=== PATIENT | female | born 1960 | race Caucasian/White ===

== ENCOUNTER 2025-01-19 09:35 | Day surgery (SDC) | payer BC, SELFPAY ==
--- OUTSIDE RECORDS SUMMARY | 2024-12-12 11:44 | XMS_ITS ---
Author Organization [facility] Address [address] [place] [address] Care Team Providers Care Staking Technician Name Role Phone Valentinabonnie Nicky Primary Care Provider UnavailYovani García Jr Unavailable Allergies Allergen (clinical drug ingredient) Drug/Non Drug Allergy documented on EMR Reaction Allergy Type Onset Date Status amoxicillin Amoxicillin Unknown Drug Allergy Act ana tomato allergenic extract Tomato (Diagnostic) Unknown Drug Allergy Active sertraline Zoloft Unknown Drug Allergy Active REASON FOR VISIT Patient presents today for a colonoscopy Medications Medication SIG (Take, Route, Frequency, Duration) Notes Start Date End Date Status Eliquis 5 MG as directed Orally Active Doxepin HCl 10 MG 1 capsule at bedtime Orally Once a day Active amLODIPine Besylate 2.5 MG 1 tablet Oral ly Once a day Active ProAir HFA 108 (90 Base) MCG/ACT INHALE 2 PUFFS 4 TIMES A DAY Inhalation as needed Unknown Atorvastatin Calcium 10 MG 1 tablet Oral ly Once a day Active Immunizations Vaccine Route Administration Date Status Comme nts Influenza Unknown 12/11/2024 Refused Problems Problem Type SNOMED Code ICD Code Onset Dates Problem Status W/U Status Risk Notes Problem Screening for malignant neoplasm of colon (409818296) Encounter for screening for malignant neoplasm of colon (Z12.11) Active confirmed Problem Constipation (61336898) Constipation (K59.00) Active confirmed Problem Anticoagulant long-term use (Z79.01) Active confirmed Vital Signs Temperature 98.6 degrees Fahrenheit 12/12/19 25 Blood pressure systolic 001 mm Hg 12/12/19 25 Blood pressure diastolic 01 mm Hg 025 Height 62.5 in 12/11/2024 Weight 196.6 lbs 12/11/2024 BMI 35.38 kg/m2 12/11/2024 Encounters Encounter Location Date Provider Diagnosis [facility] [address] [place] [address] 12/11/2024 Yovani Elise Jr Encounter for screening for malignant neoplasm of colon Z12.11 ; Constipation K59.00 and Anticoagulant long-term use Z79.01 Assessments Encounter Date Diagnosis (ICD Code) Assessment Notes Treatment Notes Treatment Clinical Notes Section Notes 12/11/2024 Encounter for screening for malignant neoplasm of colon (ICD-10 - Z12.11) We discussed constipation today. We discussed the reasons why this may have occurred since her surgery. This could be due to medications, diet, or lack of fiber. We discussed the high-fiber diet. We discussed the use of Metamucil and MiraLAX for her symptoms. She is due for colorectal cancer screening. This will be arranged. She understands risks and benefits and agrees to proceed. She is advised to stop Eliquis 3 days before the procedure. 12/11/2024 Constipation (ICD-10 - K59.00) We discussed constipation today. We discussed the reasons why this may have occurred since her surgery. This could be due to medications, diet, or lack of fiber. We discussed the high-fiber diet. We discussed the use of Metamucil and MiraLAX for her symptoms. She is due for colorectal cancer screening. This will be arranged. She understands risks and benefits and agrees to proceed. She is advised to stop Eliquis 3 days before the procedure. 12/11/2024 Anticoagulant long-term use (ICD-10 - Z79.01) We discussed constipation today. We discussed the reasons why this may have occurred since her surgery. This could be due to medications, diet, or lack of fiber. We discussed the high-fiber diet. We discussed the use of Metamucil and MiraLAX for her symptoms. She is due for colorectal cancer screening. This will be arranged. She understands risks and benefits and agrees to proceed. She is advised to stop Eliquis 3 days before the procedure. Plan Of Treatment Future Test Test Name Order Date COLONOSCOPY 12/11/2024 Next Appt Details Follow Up: 1 Year, Reason: Provider Name:Yovani altamirano Jr, 01/02/2025 12:30:00 PM, [address] [place], [place], [phone], Progress Notes * DELL MARTI LDOB: [birth year] (64 yo F)Acc No.[id number]:12/11/2024 Progress Notes Patient:DELL PEREIRA Provider:?Yovani Elise MD :1960???Age:64 Y???Sex:Female D ate:12/11/2024 Address:[address] [place] [id number] Pcp:Nicky Rausch Subjective: * Chief Complaints: * ???1. Patient presents today for a colonoscopy. * HPI: ???New symptom(s):? The patient is a pleasant 64-year-old woman seen today in consultation. 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 Since that time she reports a change in her bowel movements. She feels constipation and bloating. She has had no rectal bleeding. She has not changed her diet and has not had any new medications. She did have an IVC filter placed for a DVT. This is scheduled to be removed shortly. She is on blood thinners with Eliquis. She is unsure how long she will be needing to take this. She tries to follow a high-fiber diet. * ROS:?General/Constitutional:?Change in appetite?denies.?Fatigue?denies.?ENT:?Patient denies?difficulty swallowing.?Respiratory:?Patient denies?shortness of breath.?Cardiovascular:?Patient denies?chest pain.?Gastrointestinal:?Comments?See HPI for details.?Genitourinary:?Difficulty urinating?denies.?Incontinence?denies.?Musculoskeletal:?Patient denies?muscle aches.?Skin:?Patient denies?pruritis.?Neurologic:?Patient denies?low back pain.?Psychiatric:?Patient denies?mental or physical abuse.? 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 * Surgical History:?tonsillect caio , appendectomy , knee surgery , tubal ligation , hemorrhoidectomy , dental extractions , nose surgery - Dr. Simon 2016, nephrectomy , total knee replacement right . * Hospitalization/Major Diagno stic Procedure:?septic from UTI, found kidney tumor, hospital in for a week. 03/07/24, 05/28. * Family History:?Father: dece ased, diagnosed with HTN (hypertension).?Mother: , precancerous polyp, diagnosed with Inflammatory bowel disease, Colon polyps, Diabetes.?Maternal Grand Father: , diagnosed with Colon cancer.? No family history of liver cancer or colon cancer.? Grandfather had pancreatic cancer. * Social History:?Tobacco Use:?Tobacco Use/Smoking?Are you a: nonsmoker.?Drugs/Alcohol:?Alcohol Screen?Points: 0, Interpretation: Negative.?Miscellaneous:?Marital status: . Occupation: works full-time. * Medications:?Taking Atorvast atin Calcium 10 MG Tablet 1 tablet Orally Once a day , Taking Doxepin HCl 10 MG Capsule 1 capsule at bedtime Orally Once a day , Taking amLODIPine Besylate 2.5 MG Tablet 1 tablet Orally Once a day , Taking Eliquis 5 MG Tablet as directed Orally , Discontinued Albuterol Sulfate (2.5 MG/3ML) 0.083% Nebulization Solution 3 ml Inhalation Three times a day , Discontinued Motrin 40 MG/ML Suspension Orally prn , Discontinued Zoloft 50 MG Tablet Orally Once a day , Discontinued Benadryl 25 MG Capsule Orally once a day , Discontinued OsmoPrep 1.102-0.398 GM Tablet 32 tablets Orally over two days as directed , Discontinued Colyte w Flavor Packs 240 GM Solution Reconstituted as directed Orally as directed , Unknown ProAir HFA 108 (90 Base) MCG/ACT Aerosol Solution INHALE 2 PUFFS 4 TIMES A DAY Inhalation as needed , Medication List reviewed and reconciled with the patient * Allergies:?Amoxicillin, Zolo ft, Tomato (Diagnostic). Objective: * Vitals:?Wt: 196.6 lbs, Ht: 6 2.5 in, BMI: 35.38 Index, BP: 001/01 mm Hg, Temp: 98.6, Wt-k.18. * Examination: ???General Examination: ?GENERAL APPEARANCE:?in no acute distress.?HEAD:?normocephalic.?EYES:?sclera non-icteric.?ORAL CAVITY:?mucosa moist.?NECK/THYROID:?no lymphadenopathy.?SKIN:?anicteric.?HEART:?S1, S2 normal, no murmurs.?LUNGS:?clear to auscultation bilaterally.?CHEST:?normal shape and expansion.?ABDOMEN:?soft, nontender, nondistended, bowel sounds present, no organomegaly .?EXTREMITIES:?no clubbing, cyanosis, or edema.?PSYCH:?cognitive function intact.? Assessment: * Assessment: 1.?Constipation - K59.00 (Pr imary)???2.?Encounter for screening for malignant neoplasm of colon - Z12.11???3.?Anticoagulant long-term use - Z79.01??? We discussed constipation to day. We discussed the reasons why this may have occurred since her surgery. This could be due to medications, diet, or lack of fiber. We discussed the high-fiber diet. We discussed the use of Metamucil and MiraLAX for her symptoms. She is due for colorectal cancer screening. This will be arranged. She understands risks and benefits and agrees to proceed. She is advised to stop Eliquis 3 days before the procedure. Plan: * Treatment: * Immunizations:? Influenza (Not administered - Refused: Patient decision) * Procedure Codes:?3017F COLOR ECTAL CA SCREEN DOC REV, 1036F TOBACCO NON-USER, G9744 PATIENT NOT ELIG D/T ACTIVE DX HTN * Preventive Medicine:? ??Counseling:?Care goal follow-up plan:?Above Normal BMI Follow-up?Dietary management education, guidance, and counseling,?BMI management provided?Yes.? ??Urinary Incontinence:?Urinary Incontinence?Assessment:?Absent,?Plan of care documented:?No, reason not specified.? ??Screenings:?Fall Risk Screening?Fall Risk Assessment:?No falls in the past year,?Screening:?No falls in the past year,?Assessment:?Not performed, no reason specified,?Plan of Care:?Not documented, no reason specified.? * Follow Up:?1 Year * * Sign off status: Completed true * Provider:?Yovani Elise MD Date:?0 12/11/2024 Generated for Katey khan/Marie/eTransmitting on:?12/12/2024 11:43 AM EDT History and Physical Notes * HPI (History of Present Illness) Category Sub-Category Detail Notes Category Not es New symptom(s) The patient i s a pleasant 64-year-old woman seen today in consultation. 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 Since that time she reports a change in her bowel movements. She feels constipation and bloating. She has had no rectal bleeding. She has not changed her diet and has not had any new medications. She did have an IVC filter placed for a DVT. This is scheduled to be removed shortly. She is on blood thinners with Eliquis. She is unsure how long she will be needing to take this. She tries to follow a high-fiber diet. Examination Category Sub-Category Detail Notes Category Not es General Examination GENERAL APPEARANCE: in no acute di stress HEAD: normocephalic EYES: sclera non-icteric NECK/THYROID: no lymphadenopathy HEART: S1, S2 normal, no mu rmurs CHEST: normal shape and exp ansion LUNGS: clear to auscultatio n bilaterally ABDOMEN: soft, nontender, non distended, bowel sounds present, no organomegaly SKIN: anicteric EXTREMITIES: no clubbing, cyanosi s, or edema PSYCH: cognitive function i ntact ORAL CAVITY: mucosa moist
[2024-12-29 15:09] VITALS: BMI 35.4
--- NOTE | 2025-01-01 09:18 | HO.ANESPROP2 ---
Documented by User: Flor Hurd NP 01/11/25 13:12 HPI - Anesthesia Eval Consult details Narrative: 64yo F for Colonoscopy, 01/19/25 Eliquis for DVT, IVC filter in situ PMFSH Past Medical History Medical History (Updated 01/19/25 @ 11:07 by Meka Lynch, RN) Snores Hemochromatosis DVT (deep venous thrombosis) Clear cell adenocarcinoma of kidney HTN (hypertension) Asthma Depression Hyperlipidemia Surgical History Surgical History (Updated 01/19/25 @ 11:05 by Meka Lynch RN) History of nephrectomy, left History of inferior vena caval filter placement History of total right knee replacement Hx of nasal septoplasty Hx of hemorrhoidectomy Hx of tubal ligation Hx of knee surgery Hx of appendectomy Hx of tonsillectomy H/O colonoscopy Social History Social History (System 01/15/21 @ 09:48 by Pearl Ibrahim) Patient Tobacco Use Status: Former Tobacco user Use of substances other than those prescribed or required for medical reasons: No Are you DNR?: No Advance Directives: No Advance Directives Information Provided: Yes Meds Allergies Allergy/AdvReac Type Severity Reaction Status Date / Time ampicillin (AMPICILLIN) Allergy Severe SEVERE RASH Verified 01/19/25 11:07 iron (IRON) Allergy Severe HEMOCHROMOT Verified 01/19/25 11:07 OSIS tomato (TOMATO) Allergy Severe ANAPHYLAXIS Verified 01/19/25 11:07 amoxicillin Allergy Intermediate Rash Verified 01/19/25 11:07 Bcpvsrd-RMK-LaW Reductase Allergy Intermediate N/V Verified 01/19/25 11:07 Inhibitor ([id number] REDUCTASE INHIBITOR) Home Medications ?Medication ?Instructions ?Recorded ?Confirmed ?Last Taken ?Type amlodipine 2.5 mg tablet 2.5 mg PO BEDTIME 12/29/24 01/19/25 Unknown History apixaban 5 mg tablet (Eliquis) 5 mg PO BID 12/29/24 01/19/25 01/15/25 History rosuvastatin 10 mg tablet 10 mg PO BEDTIME 12/29/24 01/19/25 Unknown History doxepin 25 mg capsule 25 mg PO BEDTIME 01/19/25 01/19/25 Unknown History Exam Height,Weight and Vital Signs: Height 5 ft 2.5 in Weight 89.176 kg Assessment and Plan Assessment Anesthesia Assessment: Chart Reviewed Documented by User: Elza Lopez MD 01/19/25 12:15 PMFSH Past Medical History Medical History (Updated 01/19/25 @ 11:07 by Meka Lynch, RN) Snores Hemochromatosis DVT (deep venous thrombosis) Clear cell adenocarcinoma of kidney HTN (hypertension) Asthma Depression Hyperlipidemia Family History Family history of problems with anesthesia: No Surgical History Surgical History (Updated 01/19/25 @ 11:05 by Meka Lynch, RN) History of nephrectomy, left History of inferior vena caval filter placement History of total right knee replacement Hx of nasal septoplasty Hx of hemorrhoidectomy Hx of tubal ligation Hx of knee surgery Hx of appendectomy Hx of tonsillectomy H/O colonoscopy History of Problems with Anesthesia: No Social History Social History (System 01/15/21 @ 09:48 by Pearl Ibrahim) Patient Tobacco Use Status: Former Tobacco user Use of substances other than those prescribed or required for medical reasons: No Are you DNR?: No Advance Directives: No Advance Directives Information Provided: Yes Meds Allergies Allergy/AdvReac Type Severity Reaction Status Date / Time ampicillin (AMPICILLIN) Allergy Severe SEVERE RASH Verified 01/19/25 11:07 iron (IRON) Allergy Severe HEMOCHROMOT Verified 01/19/25 11:07 OSIS tomato (TOMATO) Allergy Severe ANAPHYLAXIS Verified 01/19/25 11:07 amoxicillin Allergy Intermediate Rash Verified 01/19/25 11:07 Tygiiak-WFZ-VfA Reductase Allergy Intermediate N/V Verified 01/19/25 11:07 Inhibitor ([id number] REDUCTASE INHIBITOR) Home Medications ?Medication ?Instructions ?Recorded ?Confirmed ?Last Taken ?Type amlodipine 2.5 mg tablet 2.5 mg PO BEDTIME 12/29/24 01/19/25 Unknown History apixaban 5 mg tablet (Eliquis) 5 mg PO BID 12/29/24 01/19/25 01/15/25 History rosuvastatin 10 mg tablet 10 mg PO BEDTIME 12/29/24 01/19/25 Unknown History doxepin 25 mg capsule 25 mg PO BEDTIME 01/19/25 01/19/25 Unknown History Exam Airway Mallampati Class: III TM Dist: >3cm Neck ROM: Full Assessment and Plan Assessment Anesthesia Assessment: Anesthesia Plan Discussed Final Anesthetic Review Family History of Problems with Anesthesia: No History of Problems with Anesthesia: No NPO: Yes ASA Class: III Final Preanesthetic Review: No Changes in Pt Med Stat, Meds/Allgs Chart Reviewed, Consent Obtained/Reviewed and Anes Risks/Benef Reviewed Patient Risk: Intermediate Procedure Risk: Low Anesthetic Plan Anesthetic Plan: TIVA Disposition: Standard PACU and Extended PACU
[2025-01-19 11:09] VITALS: BMI 35.3
[2025-01-19 11:24] VITALS: BP 145/85; PULSE 102; RESP 15; TEMP 36.7; O2SAT 98
[2025-01-19] MEDS: Lactated Ringers 1,000 ML 100 ML IVCONT (11:31)
--- NOTE | 2025-01-19 12:32 | P.HPSUR_ITS ---
Pre-Procedural Eval Section A - 24 Hr Update-Section A only Date of Service: 01/19/25 Section B - Complete if H&P > 30 days Chief Complaint: screening Details of Present Illness: see H&P no changes Relevant Family History (Specify if Yes): No Relevant Social History: None Present Medications: see Short Stay Collaborative assessment History of Previous Operations: No relevant previous surgery Allergies: Allergies Allergy/AdvReac Type Severity Reaction Status Date / Time ampicillin (AMPICILLIN) Allergy Severe SEVERE RASH Verified 01/19/25 11:07 iron (IRON) Allergy Severe HEMOCHROMOT Verified 01/19/25 11:07 OSIS tomato (TOMATO) Allergy Severe ANAPHYLAXIS Verified 01/19/25 11:07 amoxicillin Allergy Intermediate Rash Verified 01/19/25 11:07 Nplpsne-CMZ-GyK Reductase Allergy Intermediate N/V Verified 01/19/25 11:07 Inhibitor ([id number] REDUCTASE INHIBITOR) Review of Systems Sugical H&P ROS: Negative: Constitution, Cardiovascular, Respiratory, Neurological, Psychiatric, Hem-Onc, Allergic/Immunologic, Gastrointestinal, Ge nitourinary, Musculoskeletal, Integumentary, Endocrine and Eyes/Ears/Nose/Throat Exam Surgical H&P Exam: Normal: HEENT, Normal: Heart, Normal: Lungs, Normal: Extremities, Normal: Abdomen, Normal: Skin and Normal: Neurological Plan Diagnosis/Plan: Unchanged I have reviewed the history and physical and performed a pertinent physical examination on my patient. No changes have occurred unless specified. Time Spent With Patient Time: Total time managing care of this patient today ____ minutes.
[2025-01-19 13:15] VITALS: BP 125/64; PULSE 90; RESP 15; TEMP 37; O2SAT 97
[2025-01-19 13:30] VITALS: BP 127/66; PULSE 88; RESP 16; TEMP 36.6; O2SAT 97
--- NOTE | 2025-01-19 14:52 | OP_ITS ---
DATE OF SERVICE: 01/19/2025 SURGEON: Yovani Elise MD INDICATIONS: Colon cancer screening and prior history of adenomatous colon polyps. PREOPERATIVE DIAGNOSIS: POSTOPERATIVE DIAGNOSIS: PROCEDURE PERFORMED: Colonoscopy to the terminal ileum with snare polypectomy and biopsy. ESTIMATED BLOOD LOSS: COMPLICATIONS: ANESTHESIA: Monitored anesthesia care. ASSISTANTS: SPECIMENS: DESCRIPTION OF PROCEDURE: The history and physical was performed. The risks and benefits of the procedure were explained to the patient, and informed consent was obtained. The patient was placed in the left lateral decubitus position. A digital rectal exam was performed and was found to be normal. The Olympus pediatric video colonoscope was introduced in the rectum and advanced to the cecum. The cecum was identified by transillumination, palpation, and identification of ileocecal valve. Examination was performed. The scope was removed. She tolerated the procedure well and was returned to the recovery area in stable condition. FINDINGS: The terminal ileum was examined and appeared normal. The visualized colonic mucosa was normal. In the cecum were 2 polyps, both measuring under 10 mm. The first was removed with the cold snare. The second was removed with the biopsy forceps. In the rectum was a less than 5 mm sessile polyp, which was removed with a cold snare. There was mild sigmoid diverticulosis. Retroflexed examination showed moderate-sized internal hemorrhoids. IMPRESSION: Colon polyps. RECOMMENDATION: Follow up the biopsy results. MD SHELLY Mckay/JOY / [id number]
== END 2025-01-19 14:15 | disposition home or self-care (01) ==
PROVIDERS: PCP Internal Medicine; Visit Provider Internal Medicine Gastroenterology
PROC: 0DJD8ZZ Inspection of Lower Intestinal Tract, Via Natural or Artificial Opening Endoscopic (ICD-10-PCS; CPT 45378; principal; 2025-01-19 12:10)
DX: Z12.11 Encounter for screening for malignant neoplasm of colon (principal); Z86.0101 Personal history of adenomatous and serrated colon polyps; D12.0 Benign neoplasm of cecum; D12.8 Benign neoplasm of rectum; K57.30 Diverticulosis of large intestine without perforation or abscess without bleeding; K64.8 Other hemorrhoids; K59.00 Constipation, unspecified; R14.0 Abdominal distension (gaseous); C64.2 Malignant neoplasm of left kidney, except renal pelvis; Z90.5 Acquired absence of kidney; I10 Essential (primary) hypertension; E78.5 Hyperlipidemia, unspecified; E83.119 Hemochromatosis, unspecified; J45.909 Unspecified asthma, uncomplicated; F41.9 Anxiety disorder, unspecified; Z86.718 Personal history of other venous thrombosis and embolism; Z79.01 Long term (current) use of anticoagulants; Z79.899 Other long term (current) drug therapy; Z88.1 Allergy status to other antibiotic agents; Z88.8 Allergy status to other drugs, medicaments and biological substances; Z98.890 Other specified postprocedural states; Z87.891 Personal history of nicotine dependence
CPT/HCPCS: 45385; 45380; 88305; J2003; J2704